=== PATIENT | female | born 1970 | race Caucasian/White ===

== ENCOUNTER 2016-10-18 09:42 | Emergency (ER) | payer OTHER ==
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
[2016-10-18] MEDS ORDERED: cereBYX 50 MG/ML*** 1,000 MG in Sodium Chloride 0.9% 100 ML IVPB 100 ML IV ONE (10:22)
[2016-10-18] MEDS ORDERED: TORAdol 30 mg Injection IV ONE (10:32)
[2016-10-18] MEDS ORDERED: TORAdol 30 mg Injection ONE (10:33)
[2016-10-18 10:49] VITALS: O2SAT 97
[2016-10-18 11:26] VITALS: BP 96/54; PULSE 70
== END 2016-10-18 11:25 | disposition home or self-care (01) ==
LOC: ED 09:42
DX: G40.909 Epilepsy, unspecified, not intractable, without status epilepticus (principal); R51 Headache; Z87.898 Personal history of other specified conditions
CPT/HCPCS: 96374; 99284; J1885; Q2009

== ENCOUNTER 2018-11-07 21:34 | Emergency (ER) | payer MEDICARE, OTHER ==
[2018-11-07] MEDS ORDERED: Sodium Chloride 0.9% 1000 ML 1,000 ML IV STA (22:13)
[2018-11-07] MEDS ORDERED: Zofran 4 MG/2 ML VIAL IV ONE (22:15)
[2018-11-07] MEDS ORDERED: TORAdol 30 mg Injection IV ONE (22:15)
[2018-11-07] MEDS ORDERED: Hydromorphone 1 mg/ml Ampule IV ONE (22:16)
[2018-11-07] MEDS ORDERED: Hydromorphone 1 mg/ml Ampule ONE (22:18)
[2018-11-07] MEDS ORDERED: Sodium Chloride 0.9% 1000 ML 1,000 ML ONE (22:18)
[2018-11-07] MEDS ORDERED: TORAdol 30 mg Injection ONE (22:18)
[2018-11-07] MEDS ORDERED: Zofran 4 MG/2 ML VIAL ONE (22:18)
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
[2018-11-07 22:21] LABS: BASOPHIL % 0.1 % (0.0-0.4); Basophil (Absolute #) 0.01 (0-0.4); Eosinophil % 3.5 % (0.00-5.0); Eosinophil (Absolute #) 0.33 (0-0.5); Granulocyte Absolute (ANC) 5.68 (1.4-6.9); Granulocytes % 59.7 % (36.0-66.0); Hematocrit 47.2 % (35-47); Hemoglobin 15.4 gm/dl (12.0-16.0); Lymphocyte (Absolute #) 2.67 (1.0-4.6); Mean Cell Volume 88.1 fl (78-100); Mean Corpuscular Hemoglobin 28.7 pg (26-32); Mean Corpuscular Hgb Concent. 32.6 g/dl (32-36); Mean Platelet Volume 10.7 fl (6-9.5); Monocyte (Absolute #) 0.83 (0.0-1.3); Monocytes % 8.7 % (0.0-12.0); Platelet Count 251 K/mm3 (150-450); Red Blood Count 5.36 M/mm3 (4.1-5.4); Red Cell Distribution Width 15.7 % (11.5-14.0); White Blood Count 9.5 K/mm3 (4.0-10.5)
[2018-11-07 22:25] LABS: Calcium 10.3 mg/dL (8.4-10.2); Creatinine 1 1.05 mg/dL (0.52-1.04); Potassium 4.2 mmol/L (3.5-5.1)
[2018-11-07 22:48] LABS: Amphetamine,Urine NEGATIVE (NEGATIVE); Barbiturate,Urine NEGATIVE (NEGATIVE); Benzodiazepine,Urine NEGATIVE (NEGATIVE); Cocaine,Urine NEGATIVE (NEGATIVE); Methadone,Urine NEGATIVE (NEGATIVE); Opiate,Urine NEGATIVE (NEGATIVE); PCP,Urine NEGATIVE (NEGATIVE); THC,Urine NEGATIVE (NEGATIVE)
[2018-11-07 23:17] LABS: INFLUENZA A NEGATIVE (NEGATIVE); INFLUENZA B NEGATIVE (NEGATIVE); RESPIRATORY SYNCTIAL VIRUS NEGATIVE (Negative)
[2018-11-07 23:44] VITALS: O2SAT 97
[2018-11-07] MEDS ORDERED: Levofloxacin 500MG/100ML D5W 500 MG/100 ML BAG IV STA (23:44)
[2018-11-07] MEDS ORDERED: Levofloxacin 500MG/100ML D5W 500 MG/100 ML BAG IV ONE (23:49)
[2018-11-08] MEDS ORDERED: Norco 10/325 MG Tablet PO ONE (00:31)
[2018-11-08] MEDS ORDERED: Norco 10/325 MG Tablet ONE (00:45)
[2018-11-08 00:49] VITALS: BP 113/73; PULSE 82
--- NOTE | 2018-11-08 08:51 | XRAY ---
Indication: Left sided chest pain and difficulty breathing. Multiple contiguous axial images obtained through the chest using 80 cc Isovue 370 contrast and PE protocol. Comparison: None There is satisfactory opacification of the pulmonary arteries to include the lobar and segmental branches. No filling defect or pulmonary embolus. Heart is not enlarged. Aorta is normal in course and caliber. [place] subcarinal and right perihilar calcified nodes. No pathologic mediastinal/hilar lymphadenopathy. Examination of lung parenchyma demonstrates mild bilateral dependent atelectasis and tiny right lower lobe calcified granuloma. No suspicious pulmonary mass, infiltrate, or effusion. Bony thorax intact with mild degenerative changes throughout the spine. Limited upper abdomen demonstrates mild fatty liver, calcified splenic granuloma, and cholecystectomy clips. Impression: 1. Negative pulmonary embolus. No acute cardiopulmonary abnormalities. 2. Incidental fatty liver and evidence for old granulomatous disease. Comment: Preliminary interpretation was made by [facility]. No critical discrepancy. CT DI 33.05
== END 2018-11-08 01:21 | disposition home or self-care (01) ==
LOC: ED 21:34
DX: R09.1 Pleurisy (principal); J20.9 Acute bronchitis, unspecified; Z79.899 Other long term (current) drug therapy; G40.909 Epilepsy, unspecified, not intractable, without status epilepticus; F41.8 Other specified anxiety disorders
CPT/HCPCS: 36000; 36415; 71260; 80048; 80307; 84484; 85025; 87631; 93005; 93041; 96360; 96361; 96365; 96374; 96375; 99285; J1170; J1885; J1956; J2405; A9270-GY

== ENCOUNTER 2022-04-26 19:13 | Emergency (ER) | payer MEDICARE, OTHER ==
[2022-04-26] MEDS ORDERED: Zofran 4 MG/2 ML VIAL IV ONE (19:53)
[2022-04-26] MEDS ORDERED: MORPHINE SULFATE 4 MG INJ IV ONE (19:53)
[2022-04-26] MEDS ORDERED: Sodium Chloride 0.9% 1000 ML 1,000 ML IV STA (19:53)
[2022-04-26] MEDS ORDERED: Zofran 4 MG/2 ML VIAL ONE (20:33)
[2022-04-26] MEDS ORDERED: MORPHINE SULFATE 4 MG INJ ONE (20:33)
[2022-04-26] MEDS ORDERED: Sodium Chloride 0.9% 1000 ML 1,000 ML ONE (20:34)
[2022-04-26 20:58] LABS: Absolute Neutrophil Ct (ANC) 5.42 x10^3/uL (1.4-6.9); Basophil (Absolute #) 0.02 x10^3/uL (0-0.4); Eosinophil % 2.7 % (0.00-5.0); Eosinophil (Absolute #) 0.24 x10^3/uL (0-0.5); Hematocrit 40.6 % (35-47); Hemoglobin 13.4 g/dL (12.0-16.0); Lymphocytes % 29.3 % (24.0-44.0); Mean Cell Volume 86.9 fL (78-100); Mean Corpuscular Hemoglobin 28.7 pg (26-32); Mean Platelet Volume 10.7 fL (7.5-11.0); Monocyte (Absolute #) 0.51 x10^3/uL (0.0-1.3); Monocytes % 5.8 % (0.0-12.0); Neutrophil % 61.2 % (36.0-66.0); Platelet Count 187 x10^3/uL (150-450); Red Blood Count 4.67 x10^6/uL (4.1-5.4); Red Cell Distribution Width 14.1 % (11.5-14.0); White Blood Count 8.9 x10^3/uL (4.0-10.5)
[2022-04-26 21:09] LABS: ALBUMIN 3.2 g/dL (3.5-5.0); ALKALINE PHOSPHATASE 121 U/L (38-126); ANION GAP 6.9 MEQ/L (5-15); BLOOD UREA NITROGEN 7 mg/dL (7-17); CHLORIDE 103 mmol/L (98-107); Calcium 8.7 mg/dL (8.4-10.2); Carbon Dioxide 31 mmol/L (22-30); Creatinine 1 0.84 mg/dL (0.52-1.04); EST GLOMERULAR FILTRATION RATE > 60.0 ML/MIN; Glucose 194 mg/dL (74-106); Potassium 3.8 mmol/L (3.5-5.1); SGOT/AST 21 U/L (14-36); SGPT/ALT 23 U/L (0-35); SODIUM 137 mmol/L (137-145); Total Protein 5.8 g/dL (6.3-8.2)
[2022-04-26 21:36] LABS: Appearance CLEAR (CLEAR); Bilirubin NEGATIVE (NEGATIVE); Dipstick done @ ? MAIN LAB; Glucose NEGATIVE (NEGATIVE); Ketones NEGATIVE (NEGATIVE); Nitrite NEGATIVE (NEGATIVE); Ph 6.5 (5-6); Protein,Urine Dip NEGATIVE (Negative); RBC NEGATIVE Ery/ul (0-5); Urobilinogen 0.2 mg/dL (0-1)
[2022-04-26 21:37] LABS: Epithelial Cells RARE /HPF (FEW); Mucus SLIGHT /HPF (NEGATIVE); WBC 0-2 /HPF (0-5)
[2022-04-26 21:39] LABS: Urine Cultured Indicated? NO
[2022-04-26 22:13] VITALS: BP 144/86
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
[2022-04-26] MEDS ORDERED: Vibramycin 100 MG PO ONE (22:20)
[2022-04-26 22:31] VITALS: PULSE 83; O2SAT 95
[2022-04-26] MEDS ORDERED: Vibramycin 100 MG ONE (22:32)
--- NOTE | 2022-04-27 21:31 | XRAY ---
Exam: CT of the abdomen and pelvis without IV contrast from 04/26/2022. CTDI: 22.11 mGy Comparison: None available. Indication: 52-year-old female with prior history of hernia incarceration; complains of abdominal pain, nausea, and burning sensation in the area of hernia; prior history of bilateral hip surgeries, cholecystectomy, tubal ligation, surgery for ovarian cysts, and hernia surgery. Technique: Non-IV contrast axial images were obtained through the abdomen and pelvis. No oral contrast was given. Reconstructed coronal and sagittal images were created and reviewed. Findings: The visualized lung bases reveal a small subpleural calcified granuloma at the posterior lateral right lung base. Minimal linear atelectasis or scarring is seen at the left lung base. No posterior pleural fluid is seen. Assessment of the solid organs is limited without the use of IV contrast. The liver appears of unremarkable size. No intrahepatic biliary duct distention is seen. A small calcified granuloma is seen within the posterior inferior right hepatic lobe. Surgical clips consistent with prior cholecystectomy are noted. The spleen is of normal size and reveals a few scattered calcified granulomas, but no mass. The pancreas and adrenal glands appear unremarkable. The kidneys reveal a nonobstructing stone within the lower pole of the left kidney. No other renal calculi are seen. The kidneys are normal size. No hydronephrosis is seen. I see no evidence of ureteral distention or definite ureteral calcification. Assessment of the lower pelvis is limited because of beam hardening artifact from metallic hardware within the hips. Some atherosclerotic vascular calcification is seen within the abdominal aorta and left common iliac artery, as well as the left common femoral artery. No abdominal aortic aneurysm or abnormal retroperitoneal lymphadenopathy is seen. I see no free intraperitoneal air. There are 2 adjacent large ventral abdominal hernias containing fat, small bowel, and a portion of the colon. I see no evidence of bowel obstruction. Collective diameter of the 2 adjacent ventral hernias is approximately 26 cm x 17.1 cm on coronal image #32. I see no findings of appendicitis within the right lower quadrant. The uterus is anteflexed and appears of unremarkable size. I again see beam hardening artifact within the lower pelvis due to the metallic hip hardware. No gross evidence of pelvic adnexal abnormality is seen. I see no definite free intraperitoneal fluid. Evaluation of the urinary bladder is limited due to the beam hardening artifact. I see evidence of prior right hip arthroplasty. There is old also evidence of prior lower left pelvis surgery and proximal left femur fixation hardware with a long intramedullary jagdeep with proximal threaded screws extending through the jagdeep into the left femoral head. I see no acute fracture or aggressive bone lesion. There is evidence of moderate degenerative disc disease at L4-L5 on the right and minimal degenerative disc disease at L5-S1 on the left. Vertebral endplate spurring is seen within the lower thoracic spine. Degenerative disc disease is seen at T8-T9. The sacroiliac joints appear unremarkable. There is mild to moderate lower lumbar facet joint arthropathy at L4-L5 and L5-S1, most pronounced at L5-S1 on the left. Impression: 1. There are 2 large fat and bowel containing ventral hernias adjacent to each other within the mid abdomen extending inferiorly toward the right. I see no evidence of bowel obstruction or incarceration. 2. A nonobstructing stone is seen within the lower pole of the left kidney. There is no hydronephrosis or definite ureteral stone. Visualization of the distal ureters within the lower pelvis is difficult due to beam hardening artifact from metallic hardware within both hips. This also hampers assessment of the urinary bladder. 3. Status post cholecystectomy, atherosclerotic vascular calcifications, and evidence of right hip arthroplasty, lower left hemipelvis surgery, and left proximal femur fixation are seen.
== END 2022-04-26 22:53 | disposition home or self-care (01) ==
LOC: ED 19:13
DX: L03.311 Cellulitis of abdominal wall (principal); R10.31 Right lower quadrant pain; Z72.0 Tobacco use; Z79.899 Other long term (current) drug therapy; Z28.310 Unvaccinated for COVID-19
CPT/HCPCS: 36000; 36415; 74177; 80053; 81015; 83605; 85025; 96374; 96375; 99284; J2270; J2405; A9270-GY

== ENCOUNTER 2024-12-11 22:35 | Emergency (ER) | payer MEDICARE ==
[2024-12-11 22:48] VITALS: TEMP 96.9
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
[2024-12-11 23:39] LABS: Absolute Neutrophil Ct (ANC) 4.96 x10^3/uL (1.56-6.13); BASOPHIL % 0.4 % (0.1-1.2); Basophil (Absolute #) 0.03 x10^3/uL (0.01-0.08); Eosinophil % 4.2 % (0.7-5.8); Eosinophil (Absolute #) 0.32 x10^3/uL (0.04-0.36); Hematocrit 35.1 % (34.1-44.9); Hemoglobin 11.6 g/dL (11.2-15.7); IMMATURE GRAN # 0.03 x10^3u/L (0.001-0.031); IMMATURE GRAN % 0.4 % (0.001-0.429); Lymphocyte (Absolute #) 1.68 x10^3/uL (1.18-3.74); Lymphocytes % 22.2 % (19.3-51.7); Mean Cell Volume 83.6 fL (79.4-94.8); Mean Corpuscular Hemoglobin 27.6 pg (25.6-32.2); Mean Platelet Volume 9.1 fL (9.4-12.3); Monocyte (Absolute #) 0.54 x10^3/uL (0.24-0.86); Monocytes % 7.1 % (4.7-12.5); Neutrophil % 65.7 % (34.0-71.1); Platelet Count 264 x10^3/uL (182-369); Red Cell Distribution Width 13.8 % (11.7-14.4); White Blood Count 7.6 x10^3/uL (3.98-10.04)
[2024-12-11] MEDS ORDERED: Hydromorphone 1 mg/ml Injection ONE (23:52)
[2024-12-11] MEDS: Hydromorphone 1 mg/ml Injection IV ONE (23:54)
[2024-12-12 00:01] LABS: ALBUMIN 3.7 g/dL (3.5-5.0); BILIRUBIN,TOTAL 0.3 mg/dL (0.2-1.3); Calcium 9.3 mg/dL (8.4-10.2); Creatinine 1 0.84 mg/dL (0.52-1.04); Potassium 3.6 mmol/L (3.5-5.1); Total Protein 6.9 g/dL (6.3-8.2)
--- NOTE | 2024-12-12 00:48 | XRAY ---
CLINICAL HISTORY: pain sub q tissue post op wound COMPARISON: .. None TECHNIQUE: Contiguous axial images were obtained from the level of the diaphragm to the pubic symphysis without intravenous or oral contrast. Coronal and sagittal reconstructions were likewise performed and indicated to increase the sensitivity for detecting clinically relevant pathology. CT scan was performed according to ALARA (as low as reasonable achievable). FINDINGS: The visualized lung bases are clear. Evaluation of the abdominal and pelvic visceral organs is limited without intravenous contrast. The unenhanced liver, spleen, pancreas, and adrenal glands are grossly unremarkable. The gallbladder is postop. The kidneys are normal in size and attenuation. A 4 mm non obstructive calculus noted at lower calyx of left kidney, There is no hydronephrosis. perinephric stranding noted. The ureters are normal in caliber. No adenopathy or fluid collections are seen. No evidence of focal or diffuse bowel wall thickening or evidence of bowel obstruction is seen. The appendix is visualized in the right lower quadrant and appears within normal limits. The aorta is normal in caliber. The urinary bladder is normal in contour. Pelvic viscera are suboptimally assessed due to streak artefact No aggressive appearing osseous lesions are identified. Right hip implant Internal fixator in left proximal femur and in left iliac bone There are two collections in the anterior abdominal wall in the deep subcutaneous plane: 3 x 7 cm (right paraumbilical region) and 2 x 3 cm in midline supraumbilical region. There is fat stranding in the anterior abdominal wall The pigtail drainage catheter is just lying adjacenet to the collection in the right paraumbilical region IMPRESSION: There are two collections in the anterior abdominal wall in the deep subcutaneous plane: 3 x 7 cm (right paraumbilical region) and 2 x 3 cm in midline supraumbilical region. There is fat stranding in the anterior abdominal wall The pigtail drainage catheter is just lying adjacenet to the collection in the right paraumbilical region A 4 mm non obstructive calculus noted at lower calyx of left kidney, Electronically Signed by: Ajit Islas MD. (12/12/2024 00:45:14 EDT)
[2024-12-12 02:03] VITALS: O2SAT 98
[2024-12-12] MEDS ORDERED: BACTRIM DS TABLET PO ONE (02:04)
[2024-12-12] MEDS: BACTRIM DS TABLET PO STA (02:05)
[2024-12-12] MEDS ORDERED: Hydromorphone 1 mg/ml Injection ONE (02:55)
[2024-12-12] MEDS: Hydromorphone 1 mg/ml Injection IV ONE (02:57)
[2024-12-12 04:15] VITALS: BP 114/70; PULSE 87; RESP 16
== END 2024-12-12 04:50 | disposition home or self-care (01) ==
LOC: ED 22:35
DX: L03.311 Cellulitis of abdominal wall (principal); Z79.899 Other long term (current) drug therapy
CPT/HCPCS: 36415; 74176; 80053; 85025; 96374; 96376; 99284; J1171; A9270-GY